=== PATIENT | male | born 1995 ===

== ENCOUNTER 2018-07-23 10:48 | Emergency (ER) | payer BC ==
[2018-07-23 11:09] VITALS: TEMP 98; BMI 20.3
--- NOTE | 2018-07-23 11:52 | ED PDOC ---
HPI: Back Chief Complaint (Provider): Low back [place] x 1 week, no trauma History Per: Patient History/Exam Limitations: no limitations Onset/Duration Of Symptoms: Days Current Symptoms Are (Timing): Still Present Additional Complaint(s): 23 yo male with no medical problems presents for evaluation of low back pain for 1 week. Pt states he does a lot of lifting at his job and he was concerned. Pt sates he did not take anything for pain and does not want anything. Pt states he just wants to make sure nothing is wrong. No numbness/tingling. No bladder or bowel incontinence. Pt reports smoking marijuana and states it does help with the pain. <Whitney Ruiz - Last Filed: 07/23/18 12:16> <Gaurav Trujillo - Last Filed: 07/23/18 18:27> Time Seen by Provider: 07/23/18 10:56 Chief Complaint (Nursing): Back Pain Past Medical History Reviewed: Historical Data, Nursing Documentation, Vital Signs Vital Signs: Last Vital Signs Temp 98 F 07/23/18 11:08 Pulse 65 07/23/18 11:08 Resp 18 07/23/18 11:08 BP 121/79 07/23/18 11:08 Pulse Ox 100 07/23/18 11:08 - Medical History PMH: No Chronic Diseases - Surgical History Surgical History: No Surg Hx - Family History Family History: States: Diabetes - Living Arrangements Living Arrangements: With Family - Social History Current smoker - smoking cessation education provided: No Alcohol: None Drugs: Cannabis - Immunization History Hx Influenza Vaccination: No <Whitney Ruiz - Last Filed: 07/23/18 12:16> Vital Signs: Last Vital Signs Temp 98 F 07/23/18 13:01 Pulse 70 07/23/18 13:01 Resp 20 07/23/18 13:01 BP 110/70 07/23/18 13:01 Pulse Ox 98 07/23/18 13:01 <Gaurav Trujillo - Last Filed: 07/23/18 18:27> - Home Medications Home Medications: Ambulatory Orders Medication Instructions Recorded Oseltamivir Phosphate [Tamiflu] 1 cap PO BID #9 capsule 02/11/18 - Allergies Allergies/Adverse Reactions: Allergies Allergy/AdvReac Type Severity Reaction Status Date / Time No Known Allergies Allergy Verified 02/11/18 11:23 Review of Systems ROS Statement: Except As Marked, All Systems Reviewed And Found Negative Constitutional: Negative for: Fever, Chills Gastrointestinal: Negative for: Nausea, Vomiting, Abdominal Pain Genitourinary Male: Negative for: Dysuria, Frequency Musculoskeletal: Positive for: Back Pain <Whitney Ruiz - Last Filed: 07/23/18 12:16> Physical Exam - Reviewed Nursing Documentation Reviewed: Yes Vital Signs Reviewed: Yes - Physical Exam Appears: Positive for: Well, Non-toxic, No Acute Distress Head Exam: Positive for: ATRAUMATIC, NORMAL INSPECTION, NORMOCEPHALIC Skin: Positive for: Normal Color, Warm, DRY Eye Exam: Positive for: Normal appearance ENT: Positive for: Normal ENT Inspection Neck: Positive for: Normal, Painless ROM Cardiovascular/Chest: Negative for: Bradycardia, Tachycardia Respiratory: Negative for: Accessory Muscle Use, Respiratory Distress Back: Positive for: Normal Inspection, Vertebral Tenderness. Negative for: L CVA Tenderness, R CVA Tenderness Extremity: Positive for: Normal ROM. Negative for: Tenderness Neurologic/Psych: Positive for: Alert, Oriented <BertramivoneWhitney Somers - Last Filed: 07/23/18 12:16> - ECG O2 Sat by Pulse Oximetry: 100 <BertramivoneWhitney Somers - Last Filed: 07/23/18 12:16> Medical Decision Making Medical Decision Making: Normal LS XR <BertramivoneWhitney Somers - Last Filed: 07/23/18 12:16> Disposition - Disposition Disposition: Routine/Home Disposition Time: 12:16 <SaraWhitney J - Last Filed: 07/23/18 12:16> <Gaurav Trujillo - Last Filed: 07/23/18 18:27> - Clinical Impression Clinical Impression: Low back pain - Disposition Referrals: Andrews Colón MD [Staff Provider] - Condition: GOOD Instructions: Low Back Pain in Adults Forms: [facility] ([place]), [facility] School/Work Excuse Addendum Addendum: 07/23/18 18:27 Reviewed PA chart, and agree. <Gaurav Trujillo - Last Filed: 07/23/18 18:27>
--- NOTE | 2018-07-23 12:37 | RAD ---
Date of service: 07/23/2018 PROCEDURE: Radiographs of the Lumbar Spine. HISTORY: low back pain x 1 week COMPARISON: No prior. FINDINGS: BONES: Normal alignment. No listhesis. No fracture. DISC SPACES: Unremarkable. OTHER FINDINGS: None. IMPRESSION: Unremarkable radiographs of the lumbar spine.
[2018-07-23 13:02] VITALS: BP 110/70; PULSE 70; RESP 20; O2SAT 98
== END 2018-07-23 13:02 | disposition home or self-care (01) ==
LOC: H.ER 10:48
DX: M54.9 Dorsalgia, unspecified (principal); F12.90 Cannabis use, unspecified, uncomplicated